=== PATIENT | female | born 1980 ===

== ENCOUNTER 2018-02-04 18:40 | Emergency (ER) | payer OTHER ==
[2018-02-04 19:22] VITALS: BMI 17.9
--- NOTE | 2018-02-04 19:49 | ED PDOC ---
Arrival/HPI - General Chief Complaint: Palpitations Time Seen by Provider: 02/04/18 18:56 Historian: Patient - History of Present Illness Narrative History of Present Illness (Text): 02/04/18 19:46 A 38 year old female, whose past medical history includes Crohn's disease, fistulas presents to the emergency department complaining of chest palpitations vague chest discomfort intermittently for past few days. Patient reports symptoms not associated with any shortness of breath. Admits to poor sleeping habits and mentions limiting caffeine intake. Patient denies any nausea, vomiting, diarrhea, dyspnea on exertion, or any other complaints at this time. PMD: Dr. Jonna Trevino Time/Duration: < week (past few days) Past Medical History - Provider Review Nursing Documentation Reviewed: Yes - Cardiac Hx Cardiac Disorders: No - Gastrointestinal Hx Gastrointestinal Disorders: Yes Hx Crohn's Disease: Yes - Genitourinary/Gynecological Hx Genitourinary Disorders: No - Psychiatric Hx Psychophysiologic Disorder: Yes Hx Anxiety: Yes Hx Substance Use: No Family/Social History - Physician Review Nursing Documentation Reviewed: Yes Family/Social History: No Known Family HX Smoking Status: Never Smoked Hx Alcohol Use: No Hx Substance Use: No Allergies/Home Meds Allergies/Adverse Reactions: Allergies metoclopramide [From Reglan] Allergy (Verified 02/04/18 19:34) ANAPHYLAXIS Review of Systems - Physician Review All systems were reviewed & negative as marked: Yes - Review of Systems Respiratory: absent: SOB Cardiovascular: Palpitations. absent: Chest Pain, ALBRECHT Gastrointestinal: absent: Diarrhea, Nausea, Vomiting Physical Exam Vital Signs Reviewed: Yes Vital Signs Temp Pulse Resp BP Pulse Ox 02/04/18 21:41 98.2 F 100 H 20 96/66 L 100 Temperature: Afebrile Blood Pressure: Normal Pulse: Tachycardic Respiratory Rate: Normal Appearance: Positive for: Well-Appearing, Non-Toxic, Comfortable Pain Distress: None Mental Status: Positive for: Alert and Oriented X 3 - Systems Exam Pupils: Present: PERRL Extroacular Muscles: Present: EOMI Conjunctiva: Present: Normal Mouth: Present: Moist Mucous Membranes Neck: Present: Normal Range of Motion Respiratory/Chest: Present: Clear to Auscultation, Good Air Exchange. No: Respiratory Distress, Accessory Muscle Use Cardiovascular: Present: Regular Rate and Rhythm, Normal S1, S2. No: Murmurs Abdomen: No: Tenderness, Distention, Peritoneal Signs Back: Present: Normal Inspection Upper Extremity: Present: Normal Inspection. No: Cyanosis, Edema Lower Extremity: Present: Normal Inspection. No: Edema Neurological: Present: GCS=15, CN II-XII Intact, Speech Normal Skin: Present: Warm, Dry, Normal Color. No: Rashes Psychiatric: Present: Alert, Oriented x 3, Normal Insight, Normal Concentration Medical Decision Making ED Course and Treatment: 02/04/18 19:49 Impression: 38 year old female with palpitations. Physical exam is benign. Plan: -- EKG -- Chest X-ray -- Labs -- Reassess and disposition Progress Notes: EKG: Ordered, reviewed, and independently interpreted the EKG. Rate : 95 BPM Rhythm : NSR Interpretation : No ST-segment elevations or depressions, no T-wave inversions, normal intervals. Comparison : No previous EKG for comparison. 02/04/18 21:37 Case discussed with Engagement Lead and Dr. Hayes Wade who is aware and agrees with the plan. Accepts patient into hospitalist service. - Lab Interpretations Lab Results: 02/04/18 20:29 02/04/18 20:29 Lab Results 02/04/18 20:29: WBC 14.5 H, RBC 4.68, Hgb 11.1 L, Hct 34.8 L, MCV 74.4 L, MCH 23.7 L, MCHC 31.9, RDW 17.5 H, Plt Count 509 H, MPV 9.5 02/04/18 20:29: Sodium 142, Potassium 4.0, Chloride 103, Carbon Dioxide 27, Anion Gap 17, BUN 18, Creatinine 0.8, Est GFR ( Amer) > 60, Est GFR (Non- Af Amer) > 60, Random Glucose 114 H, Calcium 9.3, Total Bilirubin 0.2, AST 15, ALT 18, Alkaline Phosphatase 89, Lactate Dehydrogenase 263 L, Total Creatine Kinase < 20 L, Troponin I 0.05, Total Protein 8.2, Albumin 4.2, Globulin 4.0, Albumin/Globulin Ratio 1.1 02/04/18 20:29: PT 14.0 H, INR 1.22 H, APTT 30.4 - RAD Interpretation Narrative RAD Interpretations (Text): 02/04/18 21:23 Chest X-ray- no acute process Radiology Orders: 02/04/18 19:40 CHEST PORTABLE [RAD] Stat Translation Director: ED Physician - Scribe Statement The provider has reviewed the documentation as recorded by the Cody Rodriguez Provider Scribe Attestation: All medical record entries made by the Lisaibe were at my direction and personally dictated by me. I have reviewed the chart and agree that the record accurately reflects my personal performance of the history, physical exam, medical decision making, and the department course for this patient. I have also personally directed, reviewed, and agree with the discharge instructions and disposition. Disposition/Present on Arrival - Present on Arrival Any Indicators Present on Arrival: No History of DVT/PE: No History of Uncontrolled Diabetes: No Urinary Catheter: No History of Decub. Ulcer: No History Surgical Site Infection Following: None - Disposition Have Diagnosis and Disposition been Completed?: Yes Diagnosis: Chest pain, Heart palpitations Disposition: HOSPITALIZED Disposition Time: 21:37 Patient Plan: Observation Patient Problems: Current Active Problems Problem Status Onset Chest pain Acute Heart palpitations Acute Condition: STABLE
[2018-02-04 20:36] LABS: HEMOGLOBIN 11.1 g/dL (12.0-16.0); MEAN CELL VOLUME 74.4 fl (80.0-105.0); MEAN CORPUSCULAR HEMOGLOBIN 23.7 pg (25.0-35.0); MEAN CORPUSCULAR HGB CONC 31.9 g/dl (31.0-37.0); MEAN PLATELET VOLUME 9.5 fl (7.0-11.0); RBC 4.68 10^6/uL (3.5-6.1); RED CELL DISTRIBUTION WIDTH 17.5 % (11.5-14.5); WHITE BLOOD COUNT 14.5 10^3/ul (4.5-11.0)
[2018-02-04 20:46] LABS: ALB/GLOB RATIO 1.1 (1.1-1.8); ALBUMIN 4.2 g/dL (3.0-4.8); ALT/SGPT 18 U/L (7-56); AST/SGOT 15 U/L (14-36); BLOOD UREA NITROGEN 18 mg/dL (7-21); CALCIUM 9.3 mg/dL (8.4-10.5); GFR AFRICAN-AMERICAN > 60; GFR NON-AFRICAN AMERICAN > 60
[2018-02-04 20:50] LABS: INR 1.22 (0.93-1.08); PARTIAL THROMBOPLASTIN TIME 30.4 Seconds (25.1-36.5)
[2018-02-04 20:56] LABS: TROPONIN I 0.05 ng/mL
[2018-02-04 21:44] VITALS: TEMP 98.2; O2SAT 100
[2018-02-04 23:24] VITALS: BP 98/67; PULSE 99; RESP 14
--- NOTE | 2018-02-05 01:51 | CP.PCM.HP ---
History of Present Illness - History of Present Illness History of Present Illness: CC: Palpitations HPI: 38 year old female with past medical history of crohn's disease with fistulas located near vaginal canal who presents with palpitations. Patient indicates that her symptoms started yesterday when she was shopping in grocery store. She indicates she suddenly felt her heart flopping in her chest, elevated heart rate. Patient reports mild shortness of breath and inability to control heart rate. She denies chest pain, shortness of breath, nausea, vomiting , numbness and tingling. Patient indicates she has had previous episodes and that they are related to stressful events. Patient indicates she has heightned anxiety due to her going through a seperation with her spouse. 12 point ROS is benign other then mentioned in hpi. PMH: Crohn's disease w/ presence of fistula, anxiety PSH: x4, tonsillectomy SOCHX: Tobacco: Denies, ETOH: Denies, ID: Denies FMH: Mother suffered heart attacks ALL: Metoclopramide, Azithromycin MEDS: Pentoza, Flagyl, recent ending a course of prednisone 40 mg daily GI: Paty PMD: Jonna Eddy Present on Admission - Present on Admission Any Indicators Present on Admission: No Review of Systems - Review of Systems All systems: reviewed and no additional remarkable complaints except (as menitoned in hpi) Past Patient History - Past Social History Smoking Status: Never Smoked Alcohol: None Drugs: Denies - CARDIAC Hx Cardiac Disorders: No - GASTROINTESTINAL Hx Gastrointestinal Disorders: Yes Hx Crohn's Disease: Yes - GENITOURINARY/GYNECOLOGICAL Hx Genitourinary Disorders: No - PSYCHIATRIC Hx Psychophysiologic Disorder: Yes Hx Anxiety: Yes Hx Substance Use: No - SURGICAL HISTORY Hx Surgeries: No Meds Allergies/Adverse Reactions: Allergies Allergy/AdvReac Type Severity Reaction Status Date / Time metoclopramide [From Reglan] Allergy ANAPHYLAXIS Verified 02/04/18 19:34 Physical Exam - Constitutional Appears: Non-toxic, No Acute Distress - Head Exam Head Exam: ATRAUMATIC, NORMAL INSPECTION, NORMOCEPHALIC - Eye Exam Eye Exam: EOMI, PERRL - ENT Exam ENT Exam: Mucous Membranes Moist - Respiratory Exam Respiratory Exam: Clear to Auscultation Bilateral, NORMAL BREATHING PATTERN. absent: Rhonchi, Wheezes - Cardiovascular Exam Cardiovascular Exam: Tachycardia, REGULAR RHYTHM, +S1, +S2 - GI/Abdominal Exam GI & Abdominal Exam: Normal Bowel Sounds, Soft. absent: Tenderness - Exam Additional comments: patient declined - Extremities Exam Extremities exam: Positive for: normal capillary refill, pedal pulses present. Negative for: calf tenderness, tenderness - Back Exam Back exam: NORMAL INSPECTION. absent: CVA tenderness (L), CVA tenderness (R) - Neurological Exam Neurological exam: Alert, CN II-XII Intact, Normal Gait, Oriented x3, Reflexes Normal - Psychiatric Exam Psychiatric exam: Normal Affect, Normal Mood - Skin Skin Exam: Dry, Warm Results - Vital Signs Recent Vital Signs: Last Vital Signs Temp 98.2 F 02/04/18 21:41 Pulse 99 H 02/04/18 22:15 Resp 14 02/04/18 22:15 BP 98/67 L 02/04/18 22:15 Pulse Ox 100 02/04/18 22:15 - Labs Result Diagrams: 02/04/18 20:29 02/04/18 20:29 Assessment & Plan - Assessment and Plan (Free Text) Assessment: 38 year old female, whose past medical history includes Crohn's disease, fistulas presents to the emergency department complaining of chest palpitations. Patient to be admitted for further evaluation and testing. Plan: Palpitations - Cardiology consult - Echocardiogram - Mg, Phos - EKG in AM - Trend trops Crohn's disease w/ fistula - Stable disease - GI doctor Paty in [place] - Restart Flagyl, Pentoza - Monitor DVT ppx: SCDs GI ppx: Protonix Case and plan discussed with attending Patient left AMA from ED 02/04. Benefits and risks of AMA were explained to patient. She was instructed to return to nearest ED if she developed any more palpitations, chest discomfort, shortness of breath, unrelenting fever or pain. Patient was in understanding and agreeable. Patient signed AMA form. - Date & Time Date: 02/04/18 Time: 21:30
--- NOTE | 2018-02-05 09:15 | RAD ---
HISTORY: palpitations COMPARISON: No prior. FINDINGS: LUNGS: No active pulmonary disease. PLEURA: No significant pleural effusion identified, no pneumothorax apparent. CARDIOVASCULAR: Normal. OSSEOUS STRUCTURES: No significant abnormalities. VISUALIZED UPPER ABDOMEN: Normal. OTHER FINDINGS: None. IMPRESSION: No active disease.
[2018-02-05] MEDS ORDERED: Mesalamine ER Cap 500 MG PO SCH (10:00)
== END 2018-02-04 22:45 | disposition left against medical advice (07) ==
LOC: ED 18:40 → ERH 21:37 → UNDOADMOB 21:37 → ERH 23:21
DX: R00.2 Palpitations (principal); R07.9 Chest pain, unspecified; F41.9 Anxiety disorder, unspecified